=== PATIENT | male | born 1995 | race Caucasian/White ===

== ENCOUNTER 2020-06-11 12:52 | Day surgery (SDC) | payer BC ==
[~2020-06-11] VITALS: Ht 177 cm; Wt 79.3 kg
[~2020-06-11 12:52] MED LIST: IBUPROFEN200 MG PO
--- NOTE | 2020-06-11 18:40 | NUR ---
Patient up to Ambulate independently. Gait steady. Discharge instructions reviewed with patient. Patient verbalizes understanding. Copy given to patient to take home. Patient States Post-Procedure ride home has been arranged. Discharged via wheelchair to private car for ride home. 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
== END 2020-06-11 23:14 | disposition home or self-care (01) ==
LOC: ORSCMMR 12:52 → ORD 12:52
PROVIDERS: Orthopaedic Surgery
PROC: 0QPC04Z Removal of Internal Fixation Device from Left Lower Femur, Open Approach (ICD-10-PCS; principal; 2020-06-11 14:45)
DX: Z47.2 Encounter for removal of internal fixation device (principal); T84.84XA Pain due to internal orthopedic prosthetic devices, implants and grafts, initial encounter
CPT/HCPCS: A9270; J0690; J1100; J1885; J2250; J2370; J2405; J2704; J3010; J7120

== ENCOUNTER 2023-05-02 23:03 | Emergency (ER) | payer OTHER, BC ==
[~2023-05-02] VITALS: Ht 177.8 cm; Wt 86.2 kg
[2023-05-03] MEDS ORDERED: OMEP20ER PO (01:09)
[2023-05-03] MEDS ORDERED: AMOCLA875 PO (05:58)
[2023-05-03 06:35] VITALS: BP 142/89
== END 2023-05-03 06:53 | disposition home or self-care (01) ==
LOC: ER 23:03
DX: S01.511A Laceration without foreign body of lip, initial encounter (principal); S01.81XA Laceration without foreign body of other part of head, initial encounter; V86.55XA Driver of 3- or 4- wheeled all-terrain vehicle (ATV) injured in nontraffic accident, initial encounter
CPT/HCPCS: 12013; 70100; 70486; 90471; 90715; 96365-59; 99284-25; J0690